=== PATIENT | female | born 1995 | race Caucasian/White ===

== ENCOUNTER 2018-10-01 15:02 | Emergency (ER) | payer MEDICAID, SELFPAY ==
[2018-10-01 15:03] VITALS: BP 105/66; PULSE 121; RESP 16; TEMP 36.5; BMI 27.6
--- NOTE | 2018-10-01 15:33 | ED.VISSUMM ---
- ER Visit Summary Date of Service: 10/01/18 Chief Complaint: Nausea, vomiting, diarrhea and cramping History of Present Illness: The patient is a 23 F reportedly at 25 weeks. G1, P0 Ab0. Is a 05 this morning started having nausea, vomiting and diarrhea. Mild abdominal cramping. No vaginal bleeding or discharge. No dysuria. No fever. A family member at home that the child has similar symptoms. It is questionable if the patient is currently under any care. Her due date is January 14. Physical Examination: Well-appearing young female. Vital signs are stable. She is afebrile. She does not look septic or toxic. She does not look significantly dehydrated. HEENT exam unremarkable. Moist week's membranes. Neck nontender no lymphadenopathy. Lungs clear to auscultation bilaterally. Heart tachycardic rate about 120 no murmur. Abdomen is soft. Nontender. No bowel sounds no peritoneal signs. She does have a gravid nontender uterus. Patient is moving all 4 extremities. No edema. Neurologically she is awake and alert with no focal motor deficits. Test Results: None Emergency Department Course and Treatment: Patient's history and exam are consistent with a viral gastroenteritis. She will be treated with 1 L normal saline and IV Zofran. P.o. fluid challenge. Repeat exam at 1729 patient is doing well. She is eating crackers. She is been able to hold down fluids. Her abdomen remains benign. Her heart tones were 160 per nursing. She is comfortable being discharged home. Treatment Plan: Zofran for nausea. Fluids and rest. Disposition: Discharge Impression: Acute viral gastroenteritis 25 weeks This note was generated with [employer] dictation software. It may contain incorrect words, spelling, and punctuation that were not noted in review of the chart prior to signing ED Disposition - Plan for ED Patient: Referrals: [facility] Doctor,Out of [NON-STAFF] -
[2018-10-01] MEDS: 0.9% Normal Saline 1,000 ML 999 ML IV (15:41)
[2018-10-01] MEDS: Ondansetron 4 MG/2 ML Vial IV (15:42)
--- NOTE | 2018-10-01 16:30 | NURSING ---
To ER to evaluate for labor contractions and heart rate. heart rate 160 , moderate variability and active baby movement. Patient feels upper abdomen discomfort and has vomited 4 times since 5 am and 2 x diarrhea. Small child in house sick with same symptoms yesterday. BP within normal limits per ER nurse and no headache no blurred vision no clonus . Uterine irritability noted but no contractions noted or palpated. Patient states after IV fluid bag and zofran no longer feeling discomfort and feeling better and drinking fluids. Is following up with [facility] in [place] for her OB care. Talked with [facility] ER Nurse table worker packager Patient cleared for rule out labor.
[2018-10-01 17:24] VITALS: BP 94/58; PULSE 105; RESP 15; O2SAT 99
--- NOTE | 2018-10-01 17:29 | ED.DEP ---
ED Disposition - Plan for ED Patient: Disposition: Home or Assisted Living Instructions: ED Gastroenteritis Viral Prescriptions: Ondansetron [Zofran Odt] 4 mg PO Q8H PRN PRN #10 tab PRN Reason: Nausea Referrals: Boris Watts MD [STAFF PHYSICIAN] - As soon as possible Nesha Arndt MD [STAFF PHYSICIAN] - As soon as possible Additional Instructions: Call follow-up with a local [facility] doctors to get care. Plenty of fluids and rest. Zofran as needed for nausea.
== END 2018-10-01 17:44 | disposition home or self-care (01) ==
PROVIDERS: Emergency Provider Emergency Medicine
DX: O98.512 Other viral diseases complicating pregnancy, second trimester (principal); A08.4 Viral intestinal infection, unspecified; O99.332 Smoking (tobacco) complicating pregnancy, second trimester; Z3A.25 25 weeks gestation of pregnancy
CPT/HCPCS: 96361; 96374; 99282; J7030; A4216; J2405